=== PATIENT | male | born 2000 | race Caucasian/White ===

== ENCOUNTER → 2021-09-03 11:49 | Outpatient (CLI) | payer OTHER, SELFPAY ==
[2021-09-03 18:43] LABS: Alanine Aminotransferase 19 IU/L (<50); Albumin 5.1 g/dL (3.5-5.0); Albumin Globulin Ratio 1.7 (1.0-2.8); Alkaline Phosphatase 86 U/L (38-126); Aspartate Aminotransferase 34 IU/L (17-59); BUN Creatinine Ratio 13.4 (6-22); Bilirubin Total 0.5 mg/dL (0.2-1.3); Blood Urea Nitrogen 13 mg/dL (9-20); Carbon Dioxide 29 mmol/L (22-32); Chloride 100 mmol/L (98-107); Estimated Glomerular Filt Rate > 60.0 mL/min (>60); Glucose 89 mg/dL (70-100); HEMOLYSIS < 15 (0-50); Potassium 4.8 mmol/L (3.4-5.1); Sodium 138 mmol/L (137-145); Total Protein 8.1 g/dL (6.3-8.2)
== END ==
PROVIDERS: PCP Physician Assistant; Visit Provider Physician Assistant
DX: G89.29 Other chronic pain (principal); R10.9 Unspecified abdominal pain; Z87.442 Personal history of urinary calculi
CPT/HCPCS: 80053

== ENCOUNTER → 2021-11-22 11:22 | Outpatient (CLI) | payer OTHER, SELFPAY ==
[2021-11-25 23:38] LABS: Chlamydia trachomatis NAA Negative (Negative); Neisseria gonorrhoeae NAA Negative (Negative)
== END ==
PROVIDERS: PCP Physician Assistant; Visit Provider Physician Assistant
DX: Z11.3 Encounter for screening for infections with a predominantly sexual mode of transmission (principal); G89.29 Other chronic pain; R10.9 Unspecified abdominal pain; N20.0 Calculus of kidney
CPT/HCPCS: 87491; 87591

== ENCOUNTER 2022-12-26 14:34 | Emergency (ER) | payer BC, SELFPAY ==
[2022-12-26] VITALS (7 sets, daily range): BP systolic 69–136; BP diastolic 32–75; PULSE 71–103; RESP 18; TEMP 37.6; O2SAT 98–99; BMI 19.5
[2022-12-26] MEDS: SODIUM CHLORIDE 0.9% 1,000 ML 1000 ML IV ×2 (15:50→17:44)
--- NOTE | 2022-12-26 16:05 | PC.NURSE ---
During IV insertion attempt x2 pt became pale, diaphoretic. Pt was lethargic,but still responding to RN. BP was checked and found to be hypotensive with SBP of 69. RN called for additional help. Pt tilted back in chair, IVF initiated, BG checked, apple juice given, Dr. Calderon aware and seeing pt. EKG called for and ordered. Pt BP responding appropriately, palor and diaphoresis resolving. Pt moved to room 7 and overall improving.
[2022-12-26] MEDS: ONDANSETRON 4 MG/2 ML INJ IV (16:10)
[2022-12-26 16:28] LABS: Alanine Aminotransferase 19 IU/L (<50); Albumin 4.7 g/dL (3.5-5.0); Albumin Globulin Ratio 1.6 (1.0-2.8); Alkaline Phosphatase 72 U/L (38-126); Aspartate Aminotransferase 26 IU/L (17-59); Bilirubin Total 0.5 mg/dL (0.2-1.3); Blood Urea Nitrogen 13 mg/dL (9-20); Calcium 9.5 mg/dL (8.4-10.2); Carbon Dioxide 26 mmol/L (22-32); Chloride 102 mmol/L (98-107); Estimated Glomerular Filt Rate > 60 mL/min (>60); Globulin 2.9 g/dL (1.7-4.1); Glucose 104 mg/dL (70-100); HEMOLYSIS < 15 (0-50); Lipase 54 U/L (23-300); Potassium 3.6 mmol/L (3.4-5.1); Sodium 138 mmol/L (137-145); Total Protein 7.6 g/dL (6.3-8.2)
[2022-12-26 16:38] LABS: Bacteria Urine None Seen; RBC Urine 1-5/HPF (0-5/HPF); Squamous Epithelial Cell Urine 0-1 /HPF (0-5/HPF); WBC Urine 0-1/HPF (0-5/HPF)
[2022-12-26 16:49] LABS: Add Manual Diff / Slide Review NO; Basophils Absolute Auto 0 /uL (0-100); Basophils Percent Auto 0.4 % (0-2); Eosinophils Absolute Auto 0 /uL (0-450); Eosinophils Percent Auto 0.4 % (2-4); Hematocrit 39.8 % (41-53); Hemoglobin 14.2 g/dL (13.5-17.5); Lymphocytes Absolute Auto 2000 /uL (1100-4500); Lymphocytes Percent Auto 20.8 % (25-40); Mean Corpuscular HGB Conc 35.7 % (30-36); Mean Corpuscular Hemoglobin 31.5 PG (26-34); Mean Corpuscular Volume 88.3 fL (80-100); Monocytes Absolute Auto 600 /uL (0-900); Monocytes Percent Auto 6.2 % (3-14); Neutrophils Absolute Auto 6900 /uL (1500-7000); Neutrophils Percent Auto 72.2 % (50-75); Platelet Count 279 X10^3/uL (150-400); Red Blood Cell Count 4.51 X10^6/uL (4.5-5.9); Red Cell Distribution Width 12.1 % (11.6-14.8); White Blood Cell Count 9.5 X10^3/uL (4.5-11.0)
--- NOTE | 2022-12-26 17:32 | DI.CT.S_ITS ---
PROCEDURE: CT KIDNEY URETER BLADDER (KUB) INDICATIONS: hx of recent kidney stones TECHNIQUE: Axial sections were acquired from the lung bases to the pubic symphysis. Coronal and sagittal reformats were performed. For radiation dose reduction, the following was used: automated exposure control, adjustment of mA and/or kV according to patient size. COMPARISON: [facility], , CT ABDOMEN/PELVIS WITHOUT CONTRAST, 09/18/2021, 16:36. FINDINGS: Image quality: Excellent. Lung bases: Lung bases are clear. Heart size is normal. Solid organs: Liver: The liver has no mass or intrahepatic biliary ductal dilatation. Biliary: The gallbladder has no gallstones, pericholecystic fluid, gallbladder wall thickening, or surrounding inflammatory change. Pancreas: The pancreas has no mass or ductal dilatation. There is no surrounding inflammation. Spleen: Normal size. There are no masses. Adrenals: No hypertrophy or nodules. Kidneys: 2 mm stone in the region of the left UVJ. Nonobstructive stones are seen in the left kidney. No solid mass. No cystic mass. Peritoneum and bowel: The distal esophagus and stomach are normal. The small bowel has a normal caliber and appearance. The terminal ileum is normal. The large bowel has a normal caliber and appearance. Status post appendectomy. No free fluid or air. Nodes and vessels: No retroperitoneal or mesenteric adenopathy by size criteria. Aorta and inferior vena cava are normal in size. Miscellaneous: No abdominal wall mass or hernia. PELVIS: Genitourinary: The bladder has no wall thickening or mass. No bladder calcifications. Bones: No suspicious bony lesions. No vertebral body compression fractures. IMPRESSION: 2 mm stone in the region of the left UVJ, this could however be a phlebolith. No associated hydronephrosis is seen. Dictated by: Adolfo Garrett M.D. on 12/26/2022 at 18:16 Approved by: Adolfo Garrett M.D. on 12/26/2022 at 18:20
--- NOTE | 2022-12-26 18:00 | DI.US.S_ITS ---
PROCEDURE: US SCROTUM INDICATIONS: PAIN TECHNIQUE: Real-time scanning was performed of the scrotum and testicles, with image documentation. Color and pulse Doppler interrogation was performed of both testicles. COMPARISON: [facility], CT, CT KIDNEY URETER BLADDER (KUB), 12/26/2022, 17:42. FINDINGS: Right: Testicle is normal in size at 4.5 x 1.9 x 3.3 cm, and homogenous in echotexture. Epididymis is normal in overall size and morphology. Trace right hydrocele. No varicocele. Overlying scrotal skin is normal in thickness. Left: Testicle is normal in size at 4.4 x 2.0 x 2.8 cm, and homogeneous in echotexture. Epididymis is normal in overall size and morphology. No hydrocele or varicoceles. Overlying scrotal skin is normal in thickness. Doppler: Color and pulse Doppler demonstrate normal and symmetric arterial flow in both testicles. IMPRESSION: No sonographic signs of testicular torsion or epididymitis. Approved by: Yung Momin M.D. on 12/26/2022 at 19:58
--- NOTE | 2022-12-26 20:11 | ED.GENADULT ---
HPI - General Adult General Chief complaint: Urogenital-Male Stated complaint: kidney and leg pain x4 days Time Seen by Provider: 12/26/22 17:31 Source: patient Mode of arrival: Ambulatory History of Present Illness HPI narrative: Patient is a 22-year-old male with a history of kidney stones. He stated that he passed a kidney stone earlier this week but has known further renal stones. He states that he started discomfort on his left side consistent with his prior stones. Thought that he had decreased urine output. Has also having testicular pain. No fevers. No vomiting. Has been seen multiple times recently with ultrasounds. Was sent to the emergency department today clinic on [facility]. Related Data Previous Rx's Medication Instructions Recorded cyclobenzaprine 10 mg tablet 5 - 10 mg PO TID #30 tabs 09/03/21 naproxen 500 mg tablet 500 mg PO BID #30 tabs 09/03/21 tamsulosin 0.4 mg capsule (Flomax) 0.4 mg PO DAILY PRN kidney stone 11/22/21 #30 caps Allergies Allergy/AdvReac Type Severity Reaction Status Date / Time No Known Drug Allergies Allergy Verified 12/26/22 15:15 Review of Systems Constitutional Constitutional: Reports system reviewed and no additional complaints, except as documented Gastrointestinal Gastrointestinal: Reports system reviewed and no additional complaints, except as documented Genitourinary Genitourinary: Reports system reviewed and no additional complaints, except as documented Integumentary/Breasts Skin/Breast: Reports system reviewed and no additional complaints, except as documented Neurologic Neurologic: Reports system reviewed and no additional complaints, except as documented Hematologic/Lymphatic Hematologic/Lymphatic: Reports system reviewed and no additional complaints, except as documented Patient History Medical History Depression (~2019) Hereditary neuropathy with pressure palsies (HNPP) (~2015) History of kidney stones (~2018) Surgical History (Updated 09/07/21 @ 22:31 by Glenda Simeon) Anesthesia History of appendectomy (~2014) History of hand surgery (~2018) Family History (Updated 09/07/21 @ 22:32 by Glenda Simeon) Father Hypertension Brother Hereditary neuropathy with pressure palsies (HNPP) Social History Smoking Status: Current every day smoker Smoking Status: Current every day smoker tobacco type: vaping Substance Use Type: marijuana Exam Initial Vital Signs Initial Vital Signs: Vital Signs Temperature 99.6 F 12/26/22 15:08 Pulse Rate 103 H 12/26/22 15:08 Respiratory Rate 18 12/26/22 15:08 Blood Pressure 136/75 12/26/22 15:08 Pulse Oximetry 99 12/26/22 15:08 Oxygen Delivery Method Room Air 12/26/22 15:08 Const General: cooperative, comfortable and No ill appearing HENMT Head: normal to inspection and normocephalic Cardio Rate: regular rate GI Palpation: soft and No firm Back/Spine/Pelvis Back: No CVA tenderness Skin General: no rashes or lesions noted Neuro General: patient alert, patient awake, patient oriented x3 and moves all extremities Course Orders Ordered: ED Orders 12/26/22 17:32 CT kidney ureter bladder (KUB) Stat 12/26/22 18:00 US scrotum Stat Discontinued Medications Hydrocodone Bitart/Acetaminophen (Hydrocodone/Acet 5/325 Prepack) 1 bottle MISC SEEINSTR ONE Stop: 12/26/22 20:12 Last Admin: 12/26/22 20:46 Dose: 1 bottle Documented By: ASHLEY Sodium Chloride (Normal Saline 0.9%) 1,000 mls @ 1,000 mls/hr IV BOLUS ONE Stop: 12/26/22 16:37 Last Infusion: 12/26/22 16:50 Dose: 0 mls/hr Documented By: Admin: 12/26/22 15:50 Dose: 1,000 mls/hr Documented By: CHAIM Sodium Chloride (Normal Saline 0.9%) 1,000 mls @ 1,000 mls/hr IV BOLUS ONE Stop: 12/26/22 18:33 Last Infusion: 12/26/22 18:46 Dose: 0 mls/hr Documented By: Admin: 12/26/22 17:44 Dose: 1,000 mls/hr Documented By: CHAIM Ondansetron HCl (Ondansetron 4 Mg Odt) 4 mg PO NOW PRN PRN Reason: Nausea And Vomiting Ondansetron HCl (Ondansetron 4 Mg/2 Ml Inj) 4 mg IV NOW PRN PRN Reason: Nausea And Vomiting Last Admin: 12/26/22 16:10 Dose: 4 mg Documented By: CHAIM Ondansetron HCl (Ondansetron 4 Mg Odt Prepack) 1 bottle MISC SEEINSTR ONE Stop: 12/26/22 20:12 Last Admin: 12/26/22 20:46 Dose: 1 bottle Documented By: ASHLEY Vital Signs Vital signs: Vital Signs - 8 hr 12/26/22 19:42 12/26/22 20:00 12/26/22 20:00 Pulse Rate 77 71 Blood Pressure 103/59 L Pulse Oximetry 98 99 Medical Decision Making Lab Data Lab results reviewed: Yes I reviewed the patient's lab results. 12/26/22 15:30 12/26/22 15:30 Labs: Lab Results 12/26/22 12/26/22 12/26/22 Range/Units 15:30 15:30 15:30 WBC 9.5 (4.5-11.0) X10^3/uL RBC 4.51 (4.5-5.9) X10^6/uL Hgb 14.2 (13.5-17.5) g/dL Hct 39.8 L (41-53) % MCV 88.3 (80-100) fL MCH 31.5 (26-34) PG MCHC 35.7 (30-36) % RDW 12.1 (11.6-14.8) % Plt Count 279 (150-400) X10^3/uL Neut % (Auto) 72.2 (50-75) % Lymph % (Auto) 20.8 L (25-40) % [place] % (Auto) 6.2 (3-14) % Eos % (Auto) 0.4 L (2-4) % Baso % (Auto) 0.4 (0-2) % Neut # (Auto) 6900 (7464-0488) /uL Lymph # (Auto) 2000 (5349-0600) /uL [place] # (Auto) 600 (0-900) /uL Eos # (Auto) 0 (0-450) /uL Baso # (Auto) 0 (0-100) /uL Sodium 138 (137-145) mmol/L Potassium 3.6 (3.4-5.1) mmol/L Chloride 102 (98-107) mmol/L Carbon Dioxide 26 (22-32) mmol/L BUN 13 (9-20) mg/dL Creatinine 0.93 (0.66-1.25) mg/dL Estimated GFR > 60 (>60) mL/min BUN/Creatinine Ratio 14.0 (6-22) Glucose 104 H (70-100) mg/dL Calcium 9.5 (8.4-10.2) mg/dL Total Bilirubin 0.5 (0.2-1.3) mg/dL AST 26 (17-59) IU/L ALT 19 (<50) IU/L Alkaline Phosphatase 72 (38-126) U/L Total Protein 7.6 (6.3-8.2) g/dL Albumin 4.7 (3.5-5.0) g/dL Globulin 2.9 (1.7-4.1) g/dL Albumin/Globulin Ratio 1.6 (1.0-2.8) Lipase 54 (23-300) U/L Urine RBC 1-5/hpf (0-5/HPF) Urine WBC 0-1/hpf (0-5/HPF) Ur Squamous Epith Cells 0-1 /hpf (0-5/HPF) Urine Bacteria None seen (None) Micro UA Comment Cx order by provider Point of Care Testing Glucose POC 92 Urine Dip Bedside Urine Glucose Negative Bedside Urine Bilirubin - Negative Bedside Urine Ketone - Negative Urine Specific [place] 1.010 Bedside Urine Occult Blood +/- Bedside Urine pH 6.5 Bedside Urine Protein - Negative Bedside Urine Urobilinogen - Negative Bedside Urine Nitrite - Negative Bedside Urine Leukocytes - Negative Esterase Point of care testing: Point of Care Testing Glucose POC 92 Urine Dip Bedside Urine Glucose Negative Bedside Urine Bilirubin - Negative Bedside Urine Ketone - Negative Urine Specific [place] 1.010 Bedside Urine Occult Blood +/- Bedside Urine pH 6.5 Bedside Urine Protein - Negative Bedside Urine Urobilinogen - Negative Bedside Urine Nitrite - Negative Bedside Urine Leukocytes - Negative Esterase Imaging Data CT scan - abdomen/pelvis: Radiologist's Impression: PROCEDURE:? CT KIDNEY URETER BLADDER (KUB) ? INDICATIONS:? hx of recent kidney stones ? TECHNIQUE:? Axial sections were acquired from the lung bases to the pubic symphysis.? Coronal and sagittal reformats were performed.? For radiation dose reduction, the following was used: ?automated exposure control, adjustment of mA and/or kV according to patient size.? ? COMPARISON:? [facility], , CT ABDOMEN/PELVIS WITHOUT CONTRAST, 09/18/2021, 16:36. ? FINDINGS: Image quality:? Excellent.? ? Lung bases:? Lung bases are clear.? Heart size is normal. ? Solid organs:? Liver: The liver has no mass or intrahepatic biliary ductal dilatation. Biliary: The gallbladder has no gallstones, pericholecystic fluid, gallbladder wall thickening, or surrounding inflammatory change. Pancreas: The pancreas has no mass or ductal dilatation. There is no surrounding inflammation. Spleen: Normal size. There are no masses. Adrenals: No hypertrophy or nodules. Kidneys:? 2 mm stone in the region of the left UVJ.? Nonobstructive stones are seen in the left kidney.? No solid mass. No cystic mass. ? Peritoneum and bowel:? The distal esophagus and stomach are normal.? The small bowel has a normal caliber and appearance. The terminal ileum is normal. The large bowel has a normal caliber and appearance.? Status post appendectomy.? No free fluid or air.? ? Nodes and vessels:? No retroperitoneal or mesenteric adenopathy by size criteria.? Aorta and inferior vena cava are normal in size.? ? Miscellaneous:? No abdominal wall mass or hernia. ? PELVIS:? Genitourinary:? The bladder has no wall thickening or mass. No bladder calcifications. ? Bones:? No suspicious bony lesions.? No vertebral body compression fractures.? ? IMPRESSION:? 2 mm stone in the region of the left UVJ, this could however be a phlebolith.? No associated hydronephrosis is seen. US scrotum: Radiologist's Impression: PROCEDURE:? US SCROTUM ? INDICATIONS:? PAIN ? TECHNIQUE:? Real-time scanning was performed of the scrotum and testicles, with image documentation.? Color and pulse Doppler interrogation was performed of both testicles.? ? COMPARISON:? [facility], CT, CT KIDNEY URETER BLADDER (KUB), 12/26/2022, 17:42. ? FINDINGS:? ? Right:? Testicle is normal in size at 4.5 x 1.9 x 3.3 cm, and homogenous in echotexture.? Epididymis is normal in overall size and morphology.? Trace right hydrocele.? No varicocele.? Overlying scrotal skin is normal in thickness.? ? Left:? Testicle is normal in size at 4.4 x 2.0 x 2.8 cm, and homogeneous in echotexture.? Epididymis is normal in overall size and morphology.? No hydrocele or varicoceles.? Overlying scrotal skin is normal in thickness.? ? Doppler:? Color and pulse Doppler demonstrate normal and symmetric arterial flow in both testicles.? ? IMPRESSION:? No sonographic signs of testicular torsion or epididymitis. MDM Narrative Medical decision making narrative: Normal kidney function. No leukocytosis. CT scan shows left-sided distal ureteral stone. Scrotal ultrasound is unremarkable. I suspect that this stone is what is causing his presentation today and also causing his scrotal pain. There is no indication for antibiotics. Will discharge home with symptom control. He was given return precautions and follow-up instructions. He expressed understanding and agreement. Discharge Plan Departure Patient Disposition: Home Clinical Impression: Renal colic on left side Instructions: DI for Kidney Stones Activity Restrictions/Additional Instructions: I do recommend that you continue to take all of your medications as directed. Would also recommend that you talk with your primary provider about a referral to see Urology. Return to the emergency department for new or worsening symptoms Prescriptions: No Action cyclobenzaprine 10 mg tablet 5 - 10 mg PO TID Qty: 30 0RF naproxen 500 mg tablet 500 mg PO BID Qty: 30 0RF Rx Instructions: Take with food tamsulosin [Flomax] 0.4 mg capsule 0.4 mg PO DAILY PRN (Reason: kidney stone) Qty: 30 0RF Referrals: Jazmín Church PA-C [Primary Care Provider] - Stand Alone Forms: Patient Portal/API
[2022-12-26] MEDS: HYDROCODONE/ACET 5/325 PREPACK 1 BOTTLE MISC (20:46)
[2022-12-26] MEDS: ONDANSETRON 4 MG ODT PREPACK 1 BOTTLE MISC (20:46)
== END 2022-12-26 20:15 | disposition home or self-care (01) ==
PROVIDERS: Emergency Medicine; Emergency Provider Emergency Medicine; PCP Physician Assistant
DX: N23 Unspecified renal colic (principal); Z87.442 Personal history of urinary calculi
CPT/HCPCS: 36415; 51798; 74176; 76870; 80053; 81003; 81015; 82962; 83690; 85025; 87086; 93005; 93010; 96361; 96374; 99284; J2405

== ENCOUNTER → 2024-09-28 12:30 | Outpatient (CLI) | payer BC, SELFPAY ==
[2024-09-28 20:30] LABS: Monotest Negative (Negative)
[2024-09-28 20:34] LABS: Alanine Aminotransferase 25 IU/L (<50); Albumin 4.4 g/dL (3.5-5.0); Albumin Globulin Ratio 1.7 (1.0-2.8); Alkaline Phosphatase 66 U/L (38-126); Aspartate Aminotransferase 54 IU/L (17-59); Bilirubin Total 0.6 mg/dL (0.2-1.3); Blood Urea Nitrogen 4 mg/dL (9-20); Calcium 8.9 mg/dL (8.4-10.2); Carbon Dioxide 28 mmol/L (22-32); Chloride 96 mmol/L (98-107); Estimated Glomerular Filt Rate > 60 mL/min (>60); Globulin 2.6 g/dL (1.7-4.1); Glucose 97 mg/dL (70-100); HEMOLYSIS < 15 (0-50); Potassium 3.5 mmol/L (3.4-5.1); Sodium 133 mmol/L (137-145)
[2024-09-28 20:36] LABS: Hematocrit 39.7 % (41-53); Hemoglobin 14.2 g/dL (13.5-17.5); Mean Corpuscular HGB Conc 35.9 % (30-36); Mean Corpuscular Volume 86.4 fL (80-100); Platelet Count 100 X10^3/uL (150-400); Red Blood Cell Count 4.59 X10^6/uL (4.5-5.9); Red Cell Distribution Width 12.2 % (11.6-14.8)
[2024-09-28 20:59] LABS: Add Manual Diff / Slide Review YES
[2024-09-28 21:06] LABS: Neutrophils Absolute Manual 1800 /uL (3000-5900); Total Cells Counted 100
[2024-09-28 21:07] LABS: RBC Morphology Normal Morphology
[2024-09-28 21:09] LABS: Influenza A - CEPHEID Flu A NEGATIVE (NEGATIVE); Influenza B - CEPHEID Flu B NEGATIVE (NEGATIVE); Respiratory Syncytial Virus Negative (Negative)
[2024-09-28 21:17] LABS: COVID-19 CEPHEID 4-PLEX PCR Negative (Negative)
== END ==
PROVIDERS: PCP Physician Assistant Medical; Visit Provider Physician Assistant Medical
DX: R50.9 Fever, unspecified (principal); R11.2 Nausea with vomiting, unspecified; J31.0 Chronic rhinitis
CPT/HCPCS: 0241U; 80053; 85007; 85025; 86318; 87086

== ENCOUNTER → 2024-09-29 08:18 | Outpatient (CLI) | payer BC, SELFPAY ==
[2024-09-29 19:45] LABS: Hematocrit 39.4 % (41-53); Hemoglobin 14.6 g/dL (13.5-17.5); Mean Corpuscular HGB Conc 36.9 % (30-36); Mean Corpuscular Hemoglobin 31.7 PG (26-34); Platelet Count 97 X10^3/uL (150-400); Red Blood Cell Count 4.59 X10^6/uL (4.5-5.9); Red Cell Distribution Width 12.8 % (11.6-14.8); White Blood Cell Count 3.4 X10^3/uL (4.5-11.0)
[2024-09-29 19:48] LABS: Add Manual Diff / Slide Review YES
[2024-09-29 20:15] LABS: Neutrophils Absolute Manual 1462 /uL (3000-5900); Platelet Estimate Decreased on smear; RBC Morphology Normal Morphology; Total Cells Counted 100
== END ==
PROVIDERS: PCP Physician Assistant Medical; Visit Provider Physician Assistant Medical
DX: D69.6 Thrombocytopenia, unspecified (principal)
CPT/HCPCS: 85007; 85025

== ENCOUNTER → 2024-10-03 13:25 | Outpatient (CLI) | payer BC, SELFPAY ==
[2024-10-03 19:13] LABS: Add Manual Diff / Slide Review NO; Basophils Absolute Auto 0 /uL (0-100); Basophils Percent Auto 0.4 % (0-2); Eosinophils Absolute Auto 200 /uL (0-450); Eosinophils Percent Auto 2.8 % (2-4); Hematocrit 39.3 % (41-53); Hemoglobin 13.9 g/dL (13.5-17.5); Lymphocytes Absolute Auto 2800 /uL (1100-4500); Lymphocytes Percent Auto 45.8 % (25-40); Mean Corpuscular HGB Conc 35.3 % (30-36); Monocytes Absolute Auto 700 /uL (0-900); Monocytes Percent Auto 10.9 % (3-14); Neutrophils Absolute Auto 2400 /uL (1500-7000); Neutrophils Percent Auto 40.1 % (50-75); Platelet Count 246 X10^3/uL (150-400); Red Blood Cell Count 4.47 X10^6/uL (4.5-5.9); Red Cell Distribution Width 12.4 % (11.6-14.8); White Blood Cell Count 6.1 X10^3/uL (4.5-11.0)
== END ==
PROVIDERS: PCP Physician Assistant Medical; Visit Provider Physician Assistant Medical
DX: D69.6 Thrombocytopenia, unspecified (principal); R79.89 Other specified abnormal findings of blood chemistry
CPT/HCPCS: 85025